=== PATIENT | female | born 1975 | race Caucasian/White ===

== ENCOUNTER 2018-03-18 00:37 | Observation (INO) | payer BC ==
--- NOTE | 2018-03-18 00:51 | PDOC ---
History of Present Illness - General Chief Complaint: Palpitations Stated Complaint: PALPITATIONS Time Seen by Provider: 03/18/18 00:51 History Source: Patient Exam Limitations: No Limitations - History of Present Illness Initial Comments: 03/18/18 00:52 Pt presents to the ED complaining of three hours of constant palpitations that were not accompanied by chest pain or shortness of breath. Patient has history of intermittent palpitations that have been transient and never been captured by an EKG in the past. Last episode was several months ago and resolved with having a bowel movement. Patient complains of lightheadness and a feeling of generalized anxiety. Patient has been seen by both her PMD and a real estate asset manager for these episodes, but because they were very transient, no diagnosis was made. Previous work up ( EKG, blood work) has been normal. Past History - Past Medical History Allergies/Adverse Reactions: Allergies Allergy/AdvReac Type Severity Reaction Status Date / Time No Known Allergies Allergy Unverified 07/12/13 14:21 Home Medications: Ambulatory Orders Amlodipine Besylate 5 mg PO DAILY 03/18/18 Valsartan 160 mg PO DAILY 03/18/18 Review of Systems - Review of Systems Able to Perform ROS?: Yes Is the patient limited Dominican proficient: No Constitutional: No: Symptoms Reported, See HPI, Chills, Diaphoresis, Fever, Loss of Appetite, Malaise, Night Sweats, Weakness, Weight Stable, Unintentional Wgt. Loss, Unexplained wgt Loss, Other HEENTM: No: Symptoms Reported, See HPI, Eye Pain, Blurred Vision, Tearing, Recent change in vision, Double Vision, Cataracts, Ear Pain, Ocular Prothesis, Ear Discharge, Nose Pain, Nose Congestion, Tinnitus, Nose Bleeding, Hearing Loss , Throat Pain, Throat Swelling, Mouth Pain, Dental Problems, Difficulty Swallowing, Mouth Swelling, Other Respiratory: No: Symptoms reported, Cough, Orthopnea, Shortness of Breath, SOB with Exertion, SOB at Rest, Stridor, Wheezing, Productive cough, Hemoptysis, Other Cardiac (ROS): Yes: Symptoms Reported, Lightheadedness, Palpitations. No: Chest Pain, Edema, Irregular Heart Rate, Syncope, Chest Tightness, Other ABD/GI: No: Symptoms Reported, See HPI, Abdominal Distended, Abd. Pain w/ defecation, Blood Streaked Bowels, Constipated, Diarrhea, Difficulty Swallowing , Nausea, Poor Appetite, Poor Fluid Intake, Rectal Bleeding, Vomiting, Indigestion, Abdominal cramping, Tarry Stools, Other : No: Symptoms Reported, See HPI, Burning, Dysuria, Discharge, Frequency, Flank Pain, Hematuria, Incontinence, Pain, Urgency, Testicular Mass, Testicular Swelling, Lesions, Testicular Pain, Other Integumentary: No: Symptoms Reported, See HPI, Bruising, Change in Color, Change in Hair/Nails, Dryness, Erythema, Flushing, Lesions, Lumps, Pallor, Pruritus, Rash, Sweating, Other Neurological: No: Symptoms reported, See HPI, Headache, Numbness, Paresthesia, Pre-Existing Deficit, Seizure, Tingling, Tremors, Weakness, Unsteady Gait, Ataxia, Dizziness, Other Psychiatric: Yes: Anxiety All Other Systems: Reviewed and Negative *Physical Exam - Physical Exam General Appearance: Yes: Nourished, Appropriately Dressed, Mild Distress HEENT: positive: Normal Voice Neck: positive: Supple Respiratory/Chest: positive: Lungs Clear, Normal Breath Sounds Cardiovascular: positive: Regular Rhythm, Regular Rate, S1, S2 Integumentary: positive: Normal Color, Dry, Warm Neurologic: positive: machine try out setter II-XII NML intact, Fully Oriented, Alert, Normal Mood/ Affect ED Treatment Course - LABORATORY CBC & Chemistry Diagram: 03/18/18 00:51 03/18/18 00:51 Medical Decision Making - Medical Decision Making 03/18/18 00:58 Pt presents to the ED complaining of a three hour history of palpitations. initial EKG shows SVT with HR or 198. Returned to sinus rhythm with carotid massage--now in sinus with rate of 104. Will consider adenosine for repeat episodes of SVT. Will check labs to evaluate for causes of SVT such as anemia, hyperthyroidism or electrolyte disturbance. Given the severe and persistent tachycardia, will also send cardiac enzymes. *DC/Admit/Observation/Transfer Diagnosis at time of Disposition: Palpitations, SVT (supraventricular tachycardia) - Discharge Dispostion Condition at time of disposition: Good Decision to Admit order: Yes - Referrals - Patient Instructions - Post Discharge Activity
[2018-03-18 01:06] VITALS: BMI 28.5
[2018-03-18 01:37] LABS: BASO % 0.6 % (0-2.0); EOS % 0.8 % (0-4.5); HEMATOCRIT 38.4 % (32.4-45.2); HEMOGLOBIN 13.2 GM/dL (10.7-15.3); MCH 30.6 pg (25.7-33.7); MCHC 34.4 g/dl (32.0-36.0); MEAN CELL VOLUME 88.9 fl (80-96); MEAN PLT VOLUME 9.4 fl (7.5-11.1); MONO % 4.2 % (3.8-10.2); NEUT % 59.4 % (42.8-82.8); PLATELET COUNT 238 K/MM3 (134-434); RBC 4.32 M/mm3 (3.60-5.2); RDW 13.2 % (11.6-15.6); WHITE BLOOD COUNT 12.4 K/mm3 (4.0-10.0)
[2018-03-18 02:15] LABS: ALBUMIN 3.1 g/dl (3.4-5.0); ALK PHOS 107 U/L (45-117); ANION GAP 7 MMOL/L (8-16); BILIRUBIN,TOTAL < 0.1 mg/dL (0.2-1); BLOOD UREA NITROGEN 23 mg/dL (7-18); CALCIUM 7.9 mg/dL (8.5-10.1); CHLORIDE 108 mmol/L (98-107); CO2 22 mmol/L (21-32); CREATININE 1.2 mg/dL (0.55-1.3); GLUCOSE,RANDOM 193 mg/dL (74-106); SGOT/AST 23 U/L (15-37); SGPT/ALT 7 U/L (13-61); SODIUM 137 mmol/L (136-145)
[2018-03-18] MEDS ORDERED: SODIUM CHLORIDE 0.9% 500 ML INFUS.BAG IV ONE (02:21)
[2018-03-18] MEDS ORDERED: CALCIUM CARBONATE 650 MG TABLET PO ONE (03:10)
--- NOTE | 2018-03-18 09:02 | HP ---
CHIEF COMPLAINT: PCP: HISTORY OF PRESENT ILLNESS: Anayeli Hatfield is a 42 yr old F, medical condition PFO, HTN, presented to the ED complaining of three hours of constant palpitations that were not accompanied by chest pain or shortness of breath. Patient has history of intermittent palpitations that have been transient and never been captured by an EKG in the past. Last episode was several months ago and resolved with having a bowel movement. patient seen at bedside this morning, family members present, denies sob, chest pain, palpitations, pt reports starting BP meds 6-7 weeks ago. does not recall doing any strenuous activity, prior to when palpitations started. pt sees Cardio at [facility]. ER course was notable for: (1)SVT 180's (2)TSH 1.67 wnl (3)afebrile Recent Travel: PAST MEDICAL HISTORY:HTN, PFO PAST SURGICAL HISTORY: none Social History: Smoking:denies Alcohol:social Drugs: Denies Family History: Allergies No Known Allergies Allergy (Unverified 07/12/13 14:21) HOME MEDICATIONS: Home Medications Medication Instructions Recorded Amlodipine Besylate 5 mg PO DAILY 03/18/18 Valsartan 160 mg PO DAILY 03/18/18 REVIEW OF SYSTEMS CONSTITUTIONAL: Absent: fever, chills, diaphoresis, generalized weakness, malaise, loss of appetite, weight change HEENT: Absent: rhinorrhea, nasal congestion, throat pain, throat swelling, difficulty swallowing, mouth swelling, ear pain, eye pain, visual changes CARDIOVASCULAR: Absent: chest pain, syncope, palpitations, irregular heart rate, lightheadedness , peripheral edema RESPIRATORY: Absent: cough, shortness of breath, dyspnea with exertion, orthopnea, wheezing, stridor, hemoptysis GASTROINTESTINAL: Absent: abdominal pain, abdominal distension, nausea, vomiting, diarrhea, constipation, melena, hematochezia GENITOURINARY: Absent: dysuria, frequency, urgency, hesitancy, hematuria, flank pain, genital pain MUSCULOSKELETAL: Absent: myalgia, arthralgia, joint swelling, back pain, neck pain SKIN: Absent: rash, itching, pallor HEMATOLOGIC/IMMUNOLOGIC: Absent: easy bleeding, easy bruising, lymphadenopathy, frequent infections ENDOCRINE: Absent: unexplained weight gain, unexplained weight loss, heat intolerance, cold intolerance NEUROLOGIC: Absent: headache, focal weakness or paresthesias, dizziness, unsteady gait, seizure, mental status changes, bladder or bowel incontinence PSYCHIATRIC: Absent: anxiety, depression, suicidal or homicidal ideation, hallucinations. PHYSICAL EXAMINATION Vital Signs - 24 hr 03/18/18 03/18/18 03/18/18 00:38 01:06 01:30 Temperature 97.7 F Pulse Rate 182 H Pulse Rate [ 99 H 94 H Apical] Respiratory 24 H 18 Rate Blood Pressure 124/88 Blood Pressure 125/76 112/67 [Arm] O2 Sat by Pulse 100 100 100 Oximetry (%) 03/18/18 03/18/18 03/18/18 02:57 03:08 03:10 Temperature 97.8 F 97.8 F Pulse Rate 88 88 Pulse Rate [ 86 Apical] Respiratory 18 18 18 Rate Blood Pressure 101/52 L 101/52 L Blood Pressure 105/55 L [Arm] O2 Sat by Pulse 98 98 98 Oximetry (%) 03/18/18 03/18/18 06:00 07:10 Temperature 97.8 F Pulse Rate 71 Pulse Rate [ Apical] Respiratory 18 Rate Blood Pressure 125/51 L Blood Pressure [Arm] O2 Sat by Pulse 99 100 Oximetry (%) GENERAL: Awake, alert, and fully oriented, in no acute distress. HEAD: Normal with no signs of trauma. EYES: Pupils equal, round and reactive to light, extraocular movements intact, sclera anicteric, conjunctiva clear. No lid lag. EARS, NOSE, THROAT: Ears normal, nares patent, oropharynx clear without exudates. Moist mucous membranes. NECK: Normal range of motion, supple without lymphadenopathy, JVD, or masses. LUNGS: Breath sounds equal, clear to auscultation bilaterally. No wheezes, and no crackles. No accessory muscle use. HEART: Regular rate and rhythm, normal S1 and S2 without murmur, rub or gallop. ABDOMEN: Soft, nontender, not distended, normoactive bowel sounds, no guarding, no rebound, no masses. No hepatomegaly or splenomegaly. MUSCULOSKELETAL: Normal range of motion at all joints. No bony deformities or tenderness. No CVA tenderness. UPPER EXTREMITIES: 2+ pulses, warm, well-perfused. No cyanosis. No clubbing. No peripheral edema. LOWER EXTREMITIES: 2+ pulses, warm, well-perfused. No calf tenderness. No peripheral edema. NEUROLOGICAL: Cranial nerves II-XII intact. Normal speech. Normal gait. PSYCHIATRIC: Cooperative. Good eye contact. Appropriate mood and affect. SKIN: Warm, dry, normal turgor, no rashes or lesions noted, normal capillary refill. Laboratory Results - last 24 hr 03/18/18 03/18/18 03/18/18 00:51 00:51 00:51 WBC 12.4 H RBC 4.32 Hgb 13.2 Hct 38.4 MCV 88.9 MCH 30.6 MCHC 34.4 RDW 13.2 Plt Count 238 MPV 9.4 Absolute Neuts (auto) 7.4 Neutrophils % 59.4 Lymphocytes % 35.0 Monocytes % 4.2 Eosinophils % 0.8 Basophils % 0.6 Nucleated RBC % 0 Sodium 137 Potassium 4.0 Chloride 108 H Carbon Dioxide 22 Anion Gap 7 L BUN 23 H Creatinine 1.2 Creat Clearance w eGFR 49.27 Random Glucose 193 H Calcium 7.9 L Total Bilirubin < 0.1 L AST 23 ALT 7 L Alkaline Phosphatase 107 Creatine Kinase Troponin I Total Protein 7.0 Albumin 3.1 L TSH 1.67 Urine HCG, Qual Negative 03/18/18 00:52 WBC RBC Hgb Hct MCV MCH MCHC RDW Plt Count MPV Absolute Neuts (auto) Neutrophils % Lymphocytes % Monocytes % Eosinophils % Basophils % Nucleated RBC % Sodium Potassium Chloride Carbon Dioxide Anion Gap BUN Creatinine Creat Clearance w eGFR Random Glucose Calcium Total Bilirubin AST ALT Alkaline Phosphatase Creatine Kinase 124 Troponin I < 0.02 Total Protein Albumin TSH Urine HCG, Qual ASSESSMENT/PLAN: Anayeli Hatfield is a 42 yr old F, medical condition HTN, admitted under observation for Admitting Diagnosis SVT Chronic Problems HTN A/P: #SVT -resolved after carotid massage -Cardiac monitoring -cardio consult -trop neg x1 -TSH wnl #HTN -BP wnl range, -diovan, norvasc on hold Dispo: Requires inpatient treatment DVT prophylaxis -encourage ambulation Visit type - Emergency Visit Emergency Visit: Yes ED Registration Date: 03/18/18 Care time: The patient presented to the Emergency Department on the above date and was hospitalized for further evaluation of their emergent condition. - New Patient This patient is new to me today: Yes Date on this admission: 03/18/18 - Critical Care Critical Care patient: No
[2018-03-18 10:40] LABS: MAGNESIUM 2.1 mg/dL (1.8-2.4); PHOSPHOROUS 2.8 mg/dl (2.5-4.9)
[2018-03-18 13:11] LABS: COCAINE, UR NEGATIVE ng/ml (CUTOFF=300); METHADONE, UR NEGATIVE ng/ml (CUTOFF=300); OPIATES, URI NEGATIVE ng/ml (CUTOFF=300); PHENCYCLIDINE,URINE NEGATIVE ng/ml (CUTOFF=25); URINE AMPHETAMINES NEGATIVE ng/ml (CUTOFF=500); URINE BARBITURATES NEGATIVE ng/ml (CUTOFF=200); URINE BENZODIAZEPINES NEGATIVE ng/ml (CUTOFF=200)
--- NOTE | 2018-03-18 13:33 | CONSULT ---
Consult Consult Specialty:: Cardiology Referred by:: Medicine Reason for Consultation:: SVT - History of Present Illness Chief Complaint: palpitations History of Present Illness: 42 yo female with HTN on antihypertensive Rx Followed by cardiology at [facility] (Dr. Cai?) Has had 5 episodes in her lifetime where she felt intermittent palpitations Had extensive workup with EFE and Holter but unrevealing expect a PFO by her report Now presents with SVT to 198/min Was watching TV last evening at 9:45 PM and developed sudden onset of palpitations Had hard cider prior that evening and wine the evening before Previously drank 3 cups of coffee but was to ld to reduce this and now drink 1 cup per day. In ED ECG at 04:46 showed SVT at 189/min Successfully terminated with carotid massage Now asymptomatic - History Source History Provided By: Patient Limitations to Obtaining History: No Limitations - Past Medical History Cardio/Vascular: Yes: Other (PFO) - Alcohol/Substance Use Hx Alcohol Use: No - Smoking History Smoking history: Never smoked Home Medications - Allergies Allergies/Adverse Reactions: Allergies Allergy/AdvReac Type Severity Reaction Status Date / Time No Known Allergies Allergy Unverified 07/12/13 14:21 - Home Medications Home Medications: Ambulatory Orders Amlodipine Besylate 5 mg PO DAILY 03/18/18 Valsartan 160 mg PO DAILY 03/18/18 Family Disease History - Family Disease History Family History: Unremarkable Review of Systems - Review of Systems Constitutional: reports: No Symptoms Eyes: reports: No Symptoms HENT: reports: No Symptoms Neck: reports: No Symptoms Cardiovascular: reports: Palpitations Respiratory: reports: No Symptoms Gastrointestinal: reports: No Symptoms Neurological: reports: No Symptoms Endocrine: reports: No Symptoms Physical Exam Vital Signs: Vital Signs Temperature 97.8 F 03/18/18 11:31 Pulse Rate 63 03/18/18 11:31 Respiratory Rate 18 03/18/18 11:31 Blood Pressure 120/65 03/18/18 11:31 O2 Sat by Pulse Oximetry (%) 98 03/18/18 11:31 Constitutional: Yes: Well Nourished, No Distress, Calm Eyes: Yes: WNL HENT: Yes: WNL Neck: Yes: WNL Cardiovascular: Yes: WNL, Regular Rate and Rhythm Respiratory: Yes: WNL, CTA Bilaterally Gastrointestinal: Yes: Normal Bowel Sounds Musculoskeletal: Yes: WNL Extremities: Yes: WNL Edema: No Labs: CBC, BMP 03/18/18 00:51 03/18/18 00:51 Imaging - Results EKG: Image Reviewed (ECG on 03/18/2018 at 04:46 showed sVT at 198/min 03/18/18 at 00 :51 showed NSR with PACs. No evidence of prexcitation) Assessment/Plan 42 yo female with HTN now with recurrent palpitations and SVT on ECG 1) Palpitations -SVT on ECG (narrow complex, long RP) -No evidence of pre-excitation on baseline ECG and terminated with vagal manuver. -Now in NSR -Will start Metopolol Succ 25mg PO and monitor -In for echo in AM -(+) troponin likely related to rapid rate -Given recurrent nature of these symptoms, discussed options for EPS/RFA if she wishes. 2) HTN -Continue outpatient meds
[2018-03-18] MEDS: metoPROLOL SUCCINATE 25 MG TAB.SR.24H (FP) PO SCH (14:04)
--- NOTE | 2018-03-18 15:42 | EKG ---
Test Reason : Blood Pressure : / mmHG Vent. Rate : 189 BPM Atrial Rate : 192 BPM P-R Int : 000 ms QRS Dur : 066 ms QT Int : 242 ms P-R-T Axes : 000 028 074 degrees QTc Int : 429 ms POOR DATA QUALITY, INTERPRETATION MAY BE ADVERSELY AFFECTED SUPRAVENTRICULAR TACHYCARDIA NONSPECIFIC ST AND T WAVE ABNORMALITY ABNORMAL ECG WHEN COMPARED WITH ECG OF 11-APR-2005 13:47, VENT. RATE HAS INCREASED BY 112 BPM NON-SPECIFIC CHANGE IN ST SEGMENT IN LATERAL LEADS Confirmed by MARYANA SKINNER MD ([id number]) on 03/18/2018 3:42:51 PM Referred By: BELLA Confirmed By:MARYANA SKINNER MD
[2018-03-19 06:01] VITALS: BP 115/64; PULSE 56; TEMP 98.1
[2018-03-19 08:18] LABS: BASO % 0.5 % (0-2.0); HEMATOCRIT 36.2 % (32.4-45.2); HEMOGLOBIN 12.4 GM/dl (10.7-15.3); LYMPH % 35.9 % (8-40); MCH 30.3 pg (25.7-33.7); MCHC 34.1 g/dl (32.0-36.0); MEAN CELL VOLUME 88.9 fl (80-96); MEAN PLT VOLUME 9.4 fl (7.5-11.1); MONO % 5.7 % (3.8-10.2); NEUT % 56.9 % (42.8-82.8); PLATELET COUNT 238 K/MM3 (134-434); RBC 4.07 M/mm3 (3.60-5.2); RDW 12.4 % (11.6-15.6); WHITE BLOOD COUNT 7.9 K/mm3 (4.0-10.8)
[2018-03-19 08:24] LABS: ANION GAP 7 MMOL/L (8-16); BLOOD UREA NITROGEN 15 mg/dl (7-18); CALCIUM 8.7 mg/dl (8.5-10); CHLORIDE 109 mmol/L (98-107); CO2 22 mmol/L (21-32); CREATININE 0.8 mg/dl (0.55-1.3); GLUCOSE,RANDOM 99 mg/dl (74-106); POTASSIUM 4.1 mmol/L (3.5-5.1); SODIUM 138 mmol/L (136-145)
[2018-03-19] MEDS: metoPROLOL SUCCINATE 25 MG TAB.SR.24H (FP) PO SCH (10:28)
[2018-03-19] MEDS ORDERED: VALSARTAN 160 MG TABLET (UD) PO SCH (11:30)
[2018-03-19] MEDS ORDERED: amLODIPine BESYLATE 5 MG TABLET (FP) PO SCH (11:30)
--- NOTE | 2018-03-19 13:01 | DS ---
Physical Exam: SUBJECTIVE: Patient seen and examined OBJECTIVE: Vital Signs Period Temp Pulse Resp BP Sys/Martinez Pulse Ox Last 24 Hr 97.6 F-98.4 F 56-73 18-18 115-146/64-78 99-99 PHYSICAL EXAM GENERAL: The patient is awake, alert, and fully oriented, in no acute distress. HEAD: Normal with no signs of trauma. EYES: PERRL, extraocular movements intact, sclera anicteric, conjunctiva clear. ENT: Ears normal, nares patent, oropharynx clear without exudates, moist mucous membranes. NECK: Trachea midline, full range of motion, supple. LUNGS: Breath sounds equal, clear to auscultation bilaterally, no wheezes, no crackles, no accessory muscle use. HEART: Regular rate and rhythm, S1, S2 without murmur, rub or gallop. ABDOMEN: Soft, nontender, nondistended, normoactive bowel sounds, no guarding, no rebound, no hepatosplenomegaly, no masses. EXTREMITIES: 2+ pulses, warm, well-perfused, no edema. NEUROLOGICAL: Cranial nerves II through XII grossly intact. Normal speech, gait not observed. PSYCH: Normal mood, normal affect. SKIN: Warm, dry, normal turgor, no rashes or lesions noted. LABS Laboratory Results - last 24 hr 03/18/18 03/18/18 03/18/18 07:25 13:00 20:00 WBC RBC Hgb Hct MCV MCH MCHC RDW Plt Count MPV Absolute Neuts (auto) Neutrophils % Lymphocytes % Monocytes % Eosinophils % Basophils % Sodium Potassium Chloride Carbon Dioxide Anion Gap BUN Creatinine Creat Clearance w eGFR Random Glucose Calcium Troponin I 0.05 0.04 Opiates Screen Negative Methadone Screen Negative Barbiturate Screen Negative Phencyclidine Screen Negative Ur Amphetamines Screen Negative MDMA (Ecstasy) Screen Negative Benzodiazepines Screen Negative Cocaine Screen Negative U Marijuana (THC) Screen Negative 03/19/18 03/19/18 07:15 07:15 WBC 7.9 RBC 4.07 Hgb 12.4 Hct 36.2 MCV 88.9 MCH 30.3 MCHC 34.1 RDW 12.4 Plt Count 238 MPV 9.4 Absolute Neuts (auto) 4.4 Neutrophils % 56.9 Lymphocytes % 35.9 Monocytes % 5.7 Eosinophils % 1.0 Basophils % 0.5 Sodium 138 Potassium 4.1 Chloride 109 H Carbon Dioxide 22 Anion Gap 7 L BUN 15 Creatinine 0.8 Creat Clearance w eGFR > 60 Random Glucose 99 Calcium 8.7 Troponin I Opiates Screen Methadone Screen Barbiturate Screen Phencyclidine Screen Ur Amphetamines Screen MDMA (Ecstasy) Screen Benzodiazepines Screen Cocaine Screen U Marijuana (THC) Screen HOSPITAL COURSE: Date of Admission:03/18/18 Date of Discharge: 03/19/18 Pre hospital course 42 year-old female with a PMH significant for HTN, PFO, and approximately five previous episodes of palpitations for which she has extensive workups, including EFE and Holter monitoring, which were unrevealing. Patient presented to the ED complaining of three hours of palpitations that were not accompanied by chest pain or shortness of breath. ED course (1) ECG SVT @ 189 bpm successfully terminated with carotid massage (2) BP 124/88 (3) no electrolyte derangement, TSH wnl Subsequent hospital course Patient remained in SR. Serial troponins were flat-trending, likely the result of demand from rapid rate. Patient was started on Toprol XL 12.5mg daily. She will follow up with her regular automobile seat cover installer Dr. Milina. Minutes to complete discharge: 35 Discharge Summary Reason For Visit: SUPRAVENTRICULAR TACHYCARDIA Current Active Problems Palpitations (Acute) SVT (supraventricular tachycardia) (Acute) Condition: Good - Instructions Diet, Activity, Other Instructions: You have been given copies of three electrocardiograms to show your automobile seat cover installer , Dr. Milian. A prescription has been sent to your pharmacy for Toprol XL, a beta fallon. Take this medication as directed and be sure to discuss this new medication with Dr. Milian. Return to the emergency department for any new or worsening symptoms. . Referrals: Kathy Knight MD [Primary Care Provider] - Andrea Milian MD [Non Staff, Medical] - Disposition: HOME - Home Medications Comprehensive Discharge Medication List: Ambulatory Orders Amlodipine Besylate 5 mg PO DAILY 03/18/18 Valsartan 160 mg PO DAILY 03/18/18 Metoprolol Succinate [Toprol XL -] 12.5 mg PO DAILY #30 tab.sr.24h 03/19/18 This patient is new to me today: Yes Date on this admission: 03/21/18 Emergency Visit: Yes ED Registration Date: 03/18/18 Care time: The patient presented to the Emergency Department on the above date and was hospitalized for further evaluation of their emergent condition. Critical Care patient: No - Discharge Referral Referred to [facility] No
== END 2018-03-19 11:21 | disposition home or self-care (01) ==
LOC: FER 00:37 → FM/S 03:08
PROVIDERS: ADMIT Internal Medicine; ATTEND Nurse Practitioner Acute Care
PROC: 3E0337Z Introduction of Electrolytic and Water Balance Substance into Peripheral Vein, Percutaneous Approach (ICD-10-PCS; principal; 2018-03-18)
DX: I47.1 Supraventricular tachycardia (principal); R00.2 Palpitations; I10 Essential (primary) hypertension
CPT/HCPCS: 36415; 71045-TC-FY; 80048; 80053; 80307; 82550; 83735; 84100; 84443; 84484; 84703; 85025; 93005; 93010; 99285-25; G0378